=== PATIENT | female | born 1950 | race Caucasian/White ===

== ENCOUNTER → 2017-10-28 | Outpatient (CLI) | payer MEDICARE ==
[2016-05-07 15:21] VITALS: BMI 37.4
[~2017-10-28] MED LIST: ACET-2031 PO; AMOX-559 PO; CALC-762 PO; CEF300 PO; CRAN1000 PO; CYCL10TA29 PO; FLUO-176 PO; FOLI-68 PO; FOLIC ACID PO; GLUC1TAB13 PO; INF100I IV; LOR5/325 PO; MAGN30OR2 PO; METH2.5T43 PO; METHOTREXATE PO; OMEG-36 PO; ONDA4TAB97 PO; OXYC-823 PO; OXYC-869 PO; PER PO; PRE5 PO; PRED-420 PO; PRED20TA6 PO; RIV10 PO; VITA1CAP46 PO; WARF-18 PO
--- NOTE | 2017-10-28 11:27 | RADIOLOGY IMAGING REPORT ---
FACILITY: [facility] PATIENT NAME: Sarah Adams : 1950 MR: [id number] V: [id number] EXAM DATE: ORDERING PHYSICIAN: MARICHUY LUNDBERG TECHNOLOGIST: Location: [facility] Patient: Sarah Adams : 1950 Visit/Account:[id number] Date of Sevice: 10/28/2017 CHEST PA AND LAT HISTORY: Cough. Chest pain. COMPARISON: None FINDINGS: Cardiomediastinal contours: Normal Lungs and pleura: Normal Bones/soft tissues: Normal IMPRESSION: No active disease in the chest. Report Dictated By: Chalino Covington MD at 10/28/2017 11:23 AM Report E-Signed By: Chalino Covington MD at 10/28/2017 11:23 AM WSN:[id number]
== END ==
LOC: RAD 10:46
PROVIDERS: ATTEND Nurse Practitioner Primary Care
DX: R05 Cough (principal)
CPT/HCPCS: 71020

== ENCOUNTER → 2017-11-29 | Outpatient (CLI) | payer MEDICARE ==
[2016-05-07 15:21] VITALS: BMI 37.4
[~2017-11-29] MED LIST changes: +AZIT-1 PO; +MET60GMPT VA; +PNEU0.5D3 IM
== END ==
LOC: LAB 11:35
PROVIDERS: ATTEND Nurse Practitioner Primary Care
DX: R30.0 Dysuria (principal); L29.8 Other pruritus
CPT/HCPCS: 81001; 87210

== ENCOUNTER → 2017-12-27 | Outpatient (CLI) | payer MEDICARE ==
[2016-05-07 15:21] VITALS: BMI 37.4
[~2017-12-27] MED LIST changes: +FLUT16SP19 NS; +LEVO750T44 PO; -WARF-18 PO; +WARF5TAB23 PO
--- NOTE | 2017-12-28 09:13 | RADIOLOGY IMAGING REPORT ---
FACILITY: [facility] PATIENT NAME: DAYNA SOL : [id number] MR: [id number] V: [id number] EXAM DATE: [id number] ORDERING PHYSICIAN: MARICHUY LUNDBERG TECHNOLOGIST: Libby Nicholson PROCEDURE:BILATERAL DIGITAL SCREENING MAMMOGRAM WITH CAD ASSISTED INTERPRETATION & 3D TOMOSYNTHESIS COMPARISON:Prior mammograms 12/14/16. INDICATIONS:SCREENING FINDINGS: There is predominant fatty replacement throughout the breasts. The parenchymal pattern has remained stable allowing for difference in mammographic technique & patient positioning. There is no evidence of malignant appearing mass, malignant appearing calcifications or other secondary sign of malignancy in either breast. DIAGNOSTIC CATEGORY 1--NEGATIVE. RECOMMENDATIONS: ROUTINE MAMMOGRAM AND CLINICAL EVALUATION. IMPRESSION: BIRADS 1: Negative No significant abnormality is seen Dictated by: Claire Zayas M.D. on 12/27/2017 at 14:23 Transcribed by: OWEN on 12/27/2017 at 14:31 Approved by: Claire Zayas M.D. on 12/28/2017 at 9:11 [facility]
== END ==
LOC: MAMO 01:24
PROVIDERS: ATTEND Nurse Practitioner Primary Care
DX: Z12.31 Encounter for screening mammogram for malignant neoplasm of breast (principal)
CPT/HCPCS: 77063; 77067

== ENCOUNTER 2018-01-10 08:07 | Outpatient (RCR) | payer MEDICARE ==
[2016-05-07 15:21] VITALS: BMI 37.4
[2017-11-15 08:24] VITALS: BP 125/67
[2017-11-15] MEDS: LIDOCAINE/SOD BICARB 8.4% SYR ID PRN (08:31)
[2017-11-15] MEDS: NS(*) 0.9% 100 ML BAG 100 ML IVPB PRN (08:33)
[2017-11-15] MEDS: LORATADINE 10 MG TAB PO PRN (08:45)
[2017-11-15] MEDS: ACETAMINOPHEN 325 MG TAB PO PRN (08:46)
[2017-11-15 13:16] VITALS: BP 125/67
[~2018-01-10 08:07] MED LIST changes: +DEXTROSE 5%(*) 100 ML BAG 100 ML IVPB PRN; +inFLIXimab 100 MG VIAL 300 MG in NS(*) 0.9% 250 ML BAG 250 ML IVPB ONE
[2018-01-10 08:12] VITALS: BP 124/65
[2018-01-10] MEDS: ACETAMINOPHEN 325 MG TAB PO PRN (08:21)
[2018-01-10] MEDS: LORATADINE 10 MG TAB PO PRN (08:21)
[2018-01-10] MEDS: NS(*) 0.9% 100 ML BAG 100 ML IVPB PRN (08:22)
[2018-01-10] MEDS: LIDOCAINE/SOD BICARB 8.4% SYR ID PRN (08:22)
[2018-01-10 08:23] LABS: PLATELET COUNT, AUTOMATED 159 K/uL (150-450)
[2018-01-10] MEDS ORDERED: inFLIXimab 100 MG VIAL 300 MG in NS(*) 0.9% 250 ML BAG 250 ML IVPB ONE (09:00)
== END 2018-02-12 ==
LOC: SPU 08:07
PROVIDERS: ATTEND Internal Medicine Rheumatology
DX: M05.79 Rheumatoid arthritis with rheumatoid factor of multiple sites without organ or systems involvement (principal)
CPT/HCPCS: 82565; 84450; 85025; 85651; 96413; 96415; A9270; J1745; J7050

== ENCOUNTER 2018-04-09 16:31 | Emergency (ER) | payer MEDICARE ==
[2016-05-07 15:21] VITALS: Wt 81.6 kg
[~2018-04-09 16:31] MED LIST changes: -DEXTROSE 5%(*) 100 ML BAG 100 ML IVPB PRN; -inFLIXimab 100 MG VIAL 300 MG in NS(*) 0.9% 250 ML BAG 250 ML IVPB ONE
--- NOTE | 2018-04-09 16:52 | ER Report ---
History and Physical Time Seen By MD: 16:40 Hx. of Stated Complaint: PT COMPLAINS OF SOB THAT STARTED THIS MORNING WITH PAIN IN UPPER LEFT SIDED CHEST PAIN. HPI/ROS HPI: 67-year-old female presents to the ED with SOB, pain that originates from under the left breast and into the left shoulder and upper back, as well as, lumbar back pain, migraine, diarrhea and constipation. The shortness of breath started 2 days ago and has become worse today. The shortness of breath is improved when resting and made worse with exception. No treatments tried. She reports, that she frequently watches her grandchildren and often "picks up any sickness they get." Pain under breast that shoots into the left shoulder and upper back started 2 days ago and is worse today. The pain is made better when using a heating pad and worse with quick movement. The patient reports the lumbar back pain started about a week ago. The pain is likely associated with lifting her grandchildren. The patient's migraine started this morning. Reports it was her typical headache and was relieved by 500mg of Tylenol. Reports diarrhea was experienced three days ago. Constipation was experienced today. No treatments tried. ROS: General: denies night sweats and fever Head: reports migraine Eyes: denies changes in vision Ears: denies changes in hearing Nose, sinuses: denies sinus pressure Mouth, throat, neck: no difficulty swallowing CV: pain under left breast that shoots into the left shoulder and upper back Respiratory: Shortness of breath on exertion, no difficulty taking a deep breath GI: diarrhea, constipation Allergies: Uncoded Allergies: SOMETHING FROM THE DENTIST (Allergy, Unknown, 11/09/15) UNSURE THE DRUG. THE PHARMACIST CAUGHT THIS Home Meds Active Scripts Ketorolac Tromethamine (KETOROLAC TROMETHAMINE) 10 Mg Tab, 10 MG PO Q6H for 5 Days, #20 TAB Prov:EDWIN SINCLAIR [facility] 04/09/18 Sulfamethoxazole/Trimet 800-160 Mg Tab (BACTRIM DS TABLET) 1 Each Tablet, 1 TAB PO Q12H for 7 Days, #20 TAB Prov:EDWIN SINCLAIR [facility] 04/09/18 Reported Medications Infliximab (REMICADE) 100 Mg Soln, 100 MG IV 07/19/17 Folic Acid (FOLIC ACID) 1 Mg Tablet, 1 MG PO QDAY, TAB 07/19/17 Methotrexate Sodium (METHOTREXATE) 2.5 Mg Tablet, 15 MG PO Wednesdays05/06/16 Vitamin B Complex (VITAMIN B COMPLEX) 1 Each Capsule, 1 EACH PO QDAY, CAPSULE 05/06/16 Discontinued Scripts Fluticasone Prop 50 Mcg Ns (FLONASE 50 MCG NS) 16 Gm [place].susp, 2 SPRAYS NS QDAY, #1 BOT 0 Refills Prov:MARICHUY LUNDBERG DNP, [employer]OLD MAKER P[employer]ER-BC 12/07/17 Levofloxacin 750 Mg Tab (LEVAQUIN 750 MG TAB) 750 Mg Tablet, 1 TAB PO QDAY for 7 Days, #7 TAB 0 Refills Prov:MARICHUY LUNDBERG DNP, [employer]OLD MAK[employer] P[employer]ER-BC 12/07/17 Past Medical/Surgical History Pneumonia x3 - last experienced 6 months ago Arthritis Hx Smoking: No Smoking Status: Never Smoker Exposure to Second Hand Smoke?: No Hx Substance Use Disorder: No Hx Alcohol Use: Yes Constitutional Vital Sign - Last 24 Hours 04/09/18 04/09/18 04/09/18 04/09/18 16:36 16:40 16:46 17:01 Temp 99.0 Pulse 85 78 76 Resp 16 17 26 B/P (MAP) 129/61 (83) 129/61 Pulse Ox 92 92 89 O2 Delivery Room Air 04/09/18 04/09/18 04/09/18 04/09/18 17:05 17:16 17:30 17:31 Pulse 75 72 Resp 22 19 B/P (MAP) 117/69 (85) 114/70 (85) Pulse Ox 88 89 04/09/18 04/09/18 04/09/18 04/09/18 17:48 18:00 18:01 18:16 Pulse 65 70 Resp 11 14 B/P (MAP) 106/66 (79) 114/60 (78) Pulse Ox 89 88 04/09/18 04/09/18 04/09/18 04/09/18 18:30 18:35 18:40 18:43 Pulse 70 71 Resp 29 16 B/P (MAP) 101/51 (68) Pulse Ox 86 87 O2 Flow Rate 2.0 04/09/18 04/09/18 04/09/18 04/09/18 18:55 19:00 19:05 19:17 Pulse 63 63 Resp 14 B/P (MAP) 120/66 (84) 128/71 (90) Pulse Ox 99 98 O2 Delivery Room Air Intake and Output 04/09/18 04/09/18 04/10/18 14:59 22:59 06:59 Intake Total 1000 ml Balance 1000 ml Physical Exam PE: General: 67-year-old woman in no acute distress Skin: no rash, pale, pink, well perfused Head: normocephalic, atraumatic Eyes: non-injected, pupils round, reactive to light and accommodation Ears: tympanic membranes neville lucero bilaterally Nose: midline, no rhinorrhea Mouth, Throat: pink, moist, no ulcers, good dental hygiene Neck: midline, no lymphadenopathy CV: Clear S1 S2, no murmurs, PMI shifted into the axilla, 2+ radial and pedal pulses, Respiratory: BL equal respiratory excursion, CTA BL, lung sounds in the lower lobes BL GI: normoactive BS x 4 quadrants, lower abdominal pain on palpation, supra pubic pain on palpation Musculoskeletal: free ROM of all extremities, 5/5 strength of lower extremities bilaterally inguinal pain bilaterally on palpation. Neurologic: cranial nerves grossly intact Psych: alert and oriented x 4 Differential diagnoses considered included: pneumonia, angina, SD, PE, UTI, chronic back pain, siatica Medical Decision Making Data Points Result Diagram: 04/09/18 1650 04/09/18 1650 Laboratory Hematology Test 04/09/18 16:50 04/09/18 17:55 Red Blood Count 4.70 M/uL (4.17-5.56) Mean Corpuscular Volume 90.3 fL (80.0-96.0) Mean Corpuscular Hemoglobin 31.2 pg (26.0-33.0) Mean Corpuscular Hemoglobin Concent 34.6 g/dL (32.0-36.0) Red Cell Distribution Width 13.7 % (11.5-14.5) Mean Platelet Volume 9.7 fL (7.2-11.1) Neutrophils (%) (Auto) 53.6 % (39.4-72.5) Lymphocytes (%) (Auto) 29.9 % (17.6-49.6) Monocytes (%) (Auto) 14.8 % (4.1-12.4) Eosinophils (%) (Auto) 0.5 % (0.4-6.7) Basophils (%) (Auto) 1.2 % (0.3-1.4) Nucleated RBC Relative Count (auto) 0.0 /100WBC Neutrophils # (Auto) 3.1 K/uL (2.0-7.4) Lymphocytes # (Auto) 1.7 K/uL (1.3-3.6) Monocytes # (Auto) 0.9 K/uL (0.3-1.0) Eosinophils # (Auto) 0.0 K/uL (0.0-0.5) Basophils # (Auto) 0.1 K/uL (0.0-0.1) Nucleated RBC Absolute Count (auto) 0.00 K/uL Prothrombin Time 14.1 seconds (12.0-14.4) Prothromb Time International Ratio 1.08 Activated Partial Thromboplast Time 33 seconds (23-35) Sodium Level 139 mmol/L (137-145) Potassium Level 3.6 mmol/L (3.5-5.0) Chloride Level 103 mmol/L (98-107) Carbon Dioxide Level 24 mmol/L (22-31) Blood Urea Nitrogen 14 mg/dl (7-18) Creatinine 0.90 mg/dl (0.52-1.04) Glomerular Filtration Rate Calc > 60.0 Random Glucose 143 mg/dl (75-110) Calcium Level 8.8 mg/dl (8.4-10.2) Total Bilirubin 1.0 mg/dl (0.2-1.3) Aspartate Amino Transf (AST/SGOT) 48 U/L (0-35) Alanine Aminotransferase (ALT/SGPT) 34 U/L (0-56) Alkaline Phosphatase 88 U/L (0-126) Troponin I < 0.012 ng/ml C-Reactive Protein 2.4 mg/dl (<1.0) Total Protein 7.9 gm/dl (6.3-8.2) Albumin 3.7 g/dl (3.5-5.0) Urine Color Yellow Urine Clarity Slightly-cloudy Urine pH 5.0 pH (4.8-9.5) Urine Specific [place] 1.039 Urine Protein Negative mg/dL (NEGATIVE) Urine Glucose (UA) Negative mg/dL (NEGATIVE) Urine Ketones Negative mg/dL (NEGATIVE) Urine Blood Negative (NEGATIVE) Urine Nitrite Negative (NEGATIVE) Urine Bilirubin Negative (NEGATIVE) Urine Urobilinogen 4.0 mg/dL (0.2-1.9) Urine Leukocyte Esterase Large (NEGATIVE) Urine RBC 6 /HPF (0-2/HPF) Urine WBC 83 /HPF (0-5/HPF) Urine Squamous Epithelial Cells Many /LPF (</=FEW) Urine Amorphous Crystals Few /HPF Urine Bacteria Few /HPF (NONE-FEW) Urine Mucus Few /HPF (NONE-FEW) Chemistry Test 04/09/18 16:50 04/09/18 17:55 White Blood Count 5.8 k/uL (4.5-11.0) Red Blood Count 4.70 M/uL (4.17-5.56) Hemoglobin 14.7 g/dL (12.0-16.0) Hematocrit 42.5 % (34.0-47.0) Mean Corpuscular Volume 90.3 fL (80.0-96.0) Mean Corpuscular Hemoglobin 31.2 pg (26.0-33.0) Mean Corpuscular Hemoglobin Concent 34.6 g/dL (32.0-36.0) Red Cell Distribution Width 13.7 % (11.5-14.5) Platelet Count 181 K/uL (150-450) Mean Platelet Volume 9.7 fL (7.2-11.1) Neutrophils (%) (Auto) 53.6 % (39.4-72.5) Lymphocytes (%) (Auto) 29.9 % (17.6-49.6) Monocytes (%) (Auto) 14.8 % (4.1-12.4) Eosinophils (%) (Auto) 0.5 % (0.4-6.7) Basophils (%) (Auto) 1.2 % (0.3-1.4) Nucleated RBC Relative Count (auto) 0.0 /100WBC Neutrophils # (Auto) 3.1 K/uL (2.0-7.4) Lymphocytes # (Auto) 1.7 K/uL (1.3-3.6) Monocytes # (Auto) 0.9 K/uL (0.3-1.0) Eosinophils # (Auto) 0.0 K/uL (0.0-0.5) Basophils # (Auto) 0.1 K/uL (0.0-0.1) Nucleated RBC Absolute Count (auto) 0.00 K/uL Prothrombin Time 14.1 seconds (12.0-14.4) Prothromb Time International Ratio 1.08 Activated Partial Thromboplast Time 33 seconds (23-35) Glomerular Filtration Rate Calc > 60.0 Calcium Level 8.8 mg/dl (8.4-10.2) Total Bilirubin 1.0 mg/dl (0.2-1.3) Aspartate Amino Transf (AST/SGOT) 48 U/L (0-35) Alanine Aminotransferase (ALT/SGPT) 34 U/L (0-56) Alkaline Phosphatase 88 U/L (0-126) Troponin I < 0.012 ng/ml C-Reactive Protein 2.4 mg/dl (<1.0) Total Protein 7.9 gm/dl (6.3-8.2) Albumin 3.7 g/dl (3.5-5.0) Urine Color Yellow Urine Clarity Slightly-cloudy Urine pH 5.0 pH (4.8-9.5) Urine Specific [place] 1.039 Urine Protein Negative mg/dL (NEGATIVE) Urine Glucose (UA) Negative mg/dL (NEGATIVE) Urine Ketones Negative mg/dL (NEGATIVE) Urine Blood Negative (NEGATIVE) Urine Nitrite Negative (NEGATIVE) Urine Bilirubin Negative (NEGATIVE) Urine Urobilinogen 4.0 mg/dL (0.2-1.9) Urine Leukocyte Esterase Large (NEGATIVE) Urine RBC 6 /HPF (0-2/HPF) Urine WBC 83 /HPF (0-5/HPF) Urine Squamous Epithelial Cells Many /LPF (</=FEW) Urine Amorphous Crystals Few /HPF Urine Bacteria Few /HPF (NONE-FEW) Urine Mucus Few /HPF (NONE-FEW) Coagulation Test 04/09/18 16:50 Prothrombin Time 14.1 seconds Prothromb Time International Ratio 1.08 Activated Partial Thromboplast Time 33 seconds Urinalysis Test 04/09/18 17:55 Urine Color Yellow Urine Clarity Slightly-cloudy Urine pH 5.0 pH (4.8-9.5) Urine Specific [place] 1.039 Urine Protein Negative mg/dL (NEGATIVE) Urine Glucose (UA) Negative mg/dL (NEGATIVE) Urine Ketones Negative mg/dL (NEGATIVE) Urine Blood Negative (NEGATIVE) Urine Nitrite Negative (NEGATIVE) Urine Bilirubin Negative (NEGATIVE) Urine Urobilinogen 4.0 mg/dL (0.2-1.9) Urine Leukocyte Esterase Large (NEGATIVE) Urine RBC 6 /HPF (0-2/HPF) Urine WBC 83 /HPF (0-5/HPF) Urine Squamous Epithelial Cells Many /LPF (</=FEW) Urine Amorphous Crystals Few /HPF Urine Bacteria Few /HPF (NONE-FEW) Urine Mucus Few /HPF (NONE-FEW) EKG/Imaging EKG Interpretation 12 lead EKG: Rhythm: Normal sinus rhythm with left sided cardiac enlargement. [place]: normal QRS: normal ST segments: normal Imaging 2 VIEWS CHEST INDICATION: Shortness of breath. COMPARISON: 10/28/2017. FINDINGS: Cardiomediastinal silhouette and pulmonary vessels within normal limits. There is no focal infiltrate or lobar consolidation. There is no pneumothorax or pleural effusion. Mild prominence of the interstitium when compared to the previous examination. No discrete nodule. Upper abdomen is unremarkable. No acute bony abnormality. IMPRESSION: 1. There is mild increased prominence of the interstitium without focal area of consolidation. This prominence could be secondary to the mild accentuation from the mild decreased lung volumes, mild edema or mild worsening chronic interstitial changes. Report Dictated By: Lan Portillo at 04/09/2018 6:04 PM Report E-Signed By: Lan Portillo at 04/09/2018 6:05 PM ED Course/Re-evaluation ED Course Patient was admitted and examined, history and physical were obtained. Differential diagnoses were considered. Examination patient had generalized tenderness to the chest, suprapubic region. A CBC, CMP, troponin, EKG, chest x- ray, urinalysis were obtained. The lab results were unremarkable, troponin was negative, chest x-ray showed no acute findings, EKG showed a normal sinus rhythm with ventricular rate 71 bpm. The urine did show large leukocyte esterase with 86 white blood cells per high-power field. A culture was obtained. With the remaining labs being negative and the urinalysis I believe this is a urinary tract infection which is causing the generalized achiness. Patient does have generalized muscle aches which I believe is related to the urinary tract infection. We will go ahead and treat her with Bactrim DS one tablet twice a day for 7 days as well as Toradol to help with pain. Patient is increase her fluid intake, get plenty of rest, follow up with primary care provider in the next week. She is to return to emergency room if condition worsens. We will contact her if the patient needs to have her antibiotics changed. Patient and her verbalized understanding and agreement with plan. Decision to Disposition Date: Apr 09, 2018 Decision to Disposition Time: 19:16 Depart Departure Latest Vital Signs Vital Signs Date Time Temp Pulse Resp B/P (MAP) Pulse Ox O2 Delivery O2 Flow Rate FiO2 04/09/18 19:17 128/71 (90) 04/09/18 19:05 63 14 98 Room Air 04/09/18 18:43 2.0 04/09/18 16:40 99.0 Impression: Primary Impression: UTI (urinary tract infection) Additional Impression: Body aches Condition: Improved Disposition: HOME OR SELF-CARE Referrals: MARICHUY LUNDBERG DNP, [employer] P[employer]ER-BC (PCP) New Scripts Ketorolac Tromethamine (KETOROLAC TROMETHAMINE) 10 Mg Tab 10 MG PO Q6H for 5 Days, #20 TAB Prov: EDWIN SINCLAIR 04/09/18 Sulfamethoxazole/Trimet 800-160 Mg Tab (BACTRIM DS TABLET) 1 Each Tablet 1 TAB PO Q12H for 7 Days, #20 TAB Prov: EDWIN SINCLAIR 04/09/18 Patient Instructions: Urinary Tract Infection in Women (ED) Additional Instructions: Take antibiotic - Bactrim for 7 days as directed by pharmacist. Take Toradol as needed for pain every 6 hours. Follow up with your primary care provider. Consider seeing a cd reactor operator head for specialized advise. Increase your water intake and get plenty of rest. Return to the Emergency Department if your condition worsens. Problem Qualifiers Primary Impression: UTI (urinary tract infection) Urinary tract infection type: acute cystitis Hematuria presence: without hematuria Qualified Codes: N30.00 - Acute cystitis without hematuria EDWIN SINCLAIR Apr 09, 2018 16:52
[2018-04-09] MEDS ORDERED: NS(*) 0.9% 1000 ML BAG 1,000 ML IV ONE (17:20)
[2018-04-09 17:32] LABS: PLATELET COUNT, AUTOMATED 181 K/uL (150-450)
[2018-04-09 17:52] LABS: INR 1.08
--- NOTE | 2018-04-09 18:09 | RADIOLOGY IMAGING REPORT ---
FACILITY: [facility] PATIENT NAME: Sarah Adams : 1950 MR: [id number] V: [id number] EXAM DATE: ORDERING PHYSICIAN: EDWIN SINCLAIR TECHNOLOGIST: Location: [facility] Patient: Sarah Adams : 1950 Visit/Account:[id number] Date of Sevice: 04/09/2018 2 VIEWS CHEST INDICATION: Shortness of breath. COMPARISON: 10/28/2017. FINDINGS: Cardiomediastinal silhouette and pulmonary vessels within normal limits. There is no focal infiltrate or lobar consolidation. There is no pneumothorax or pleural effusion. Mild prominence of the interstitium when compared to the previous examination. No discrete nodule. Upper abdomen is unremarkable. No acute bony abnormality. IMPRESSION: 1. There is mild increased prominence of the interstitium without focal area of consolidation. This p rominence could be secondary to the mild accentuation from the mild decreased lung volumes, mild harley a or mild worsening chronic interstitial changes. Report Dictated By: Lan Portillo at 04/09/2018 6:04 PM Report E-Signed By: Lan Portillo at 04/09/2018 6:05 PM WSN:[id number]
--- NOTE | 2018-04-09 18:12 | EKG ---
FACILITY: [facility] PATIENT NAME: DAYNA SOL : [id number] MR: [id number] V: [id number] EXAM DATE: ORDERING PHYSICIAN: EDWIN SINCLAIR TECHNOLOGIST: CLEVE Pacheco Reason : Blood Pressure : / mmHG Vent. Rate : 071 BPM Atrial Rate : 071 BPM P-R Int : 136 ms QRS Dur : 070 ms QT Int : 408 ms P-R-T Axes : 022 -07 036 degrees QTc Int : 443 ms Normal sinus rhythm Possible Left atrial enlargement Borderline ECG Confirmed by TREE SIM ([id number]) on 04/10/2018 6:33:54 AM Referred By: DOTTIE Confirmed By:TREE SIM
[2018-04-09] MEDS ORDERED: SULF-198 PO (18:58)
[2018-04-09] MEDS ORDERED: KET10 PO (18:58)
[2018-04-09] MEDS ORDERED: TRIMETHOPRIM/SULFA 160-800 TH 2 TAB/BOTTLE PO ONE (19:00)
[2018-04-09 19:17] VITALS: BP 128/71
[2018-04-13] MEDS ORDERED: IPRA3AMP21 IH (10:07)
[2018-04-13] MEDS ORDERED: ENOX100D5 SQ (16:16)
== END 2018-04-09 19:21 | disposition home or self-care (01) ==
LOC: ER 16:50
DX: N30.00 Acute cystitis without hematuria (principal)
CPT/HCPCS: 71046; 81001; 84484; 85025; 85610; 85730; 86140; 87088; 93005; 96360; 99284; J7030; 82040; 82247; 82310; 82374; 82435; 82565; 82947; 84075; 84132; 84155; 84295; 84450; 84460; 84520

== ENCOUNTER → 2018-04-13 | Outpatient (CLI) | payer MEDICARE ==
[2016-05-07 15:21] VITALS: BMI 37.4
[~2018-04-13] MED LIST changes: +ENOX100D5 SQ; +IPRA3AMP21 IH; +KET10 PO; +SULF-198 PO
[2018-04-13 10:44] LABS: PLATELET COUNT, AUTOMATED 209 K/uL (150-450)
--- NOTE | 2018-04-13 11:36 | RADIOLOGY IMAGING REPORT ---
FACILITY: [facility] PATIENT NAME: Sarah Adams : 1950 MR: [id number] V: [id number] EXAM DATE: ORDERING PHYSICIAN: EDWIN SINCLAIR TECHNOLOGIST: Location: [facility] Patient: Sarah Adams : 1950 Visit/Account:[id number] Date of Sevice: 04/13/2018 Exam type: CHEST PA AND LAT History: Shortness of breath Comparison: April 09, 2018. Findings: There has been further increase in the interstitial markings throughout the lungs and mild patchy jan eolar consolidation. There is no evidence of pleural effusions. The cardiac silhouette appears norm al in size. IMPRESSION: 1. Further increase in the interstitial markings of the lungs and mild patchy alveolar consolidation bilaterally. There is no evidence of pleural effusions or cardiomegaly. Findings are more likely s econdary to bilateral pneumonia although an atypical presentation of pulmonary edema would also be in cluded in the differential diagnosis Report Dictated By: Claire Zayas MD at 04/13/2018 11:29 AM Report E-Signed By: Claire Zayas MD at 04/13/2018 11:31 AM WSN:[email or web address]
== END ==
LOC: LAB 10:01
PROVIDERS: ATTEND Nurse Practitioner Family
DX: R91.8 Other nonspecific abnormal finding of lung field (principal)
CPT/HCPCS: 36415; 71046; 85025; 85379; 86140

== ENCOUNTER → 2018-04-14 | Outpatient (CLI) | payer MEDICARE ==
[2016-05-07 15:21] VITALS: BMI 37.4
== END ==
LOC: RESP 00:44
PROVIDERS: ATTEND Nurse Practitioner Family
DX: Z02.9 Encounter for administrative examinations, unspecified (principal)

== ENCOUNTER → 2018-04-14 | Outpatient (CLI) | payer MEDICARE ==
[2016-05-07 15:21] VITALS: BMI 37.4
--- NOTE | 2018-04-14 14:35 | RADIOLOGY IMAGING REPORT ---
FACILITY: [facility] [place] PATIENT NAME: Sarah Adams : 1950 MR: [id number] V: [id number] EXAM DATE: ORDERING PHYSICIAN: MARICHUY LUNDBERG TECHNOLOGIST: Location: [facility] [place] Patient: Sarah Adams : 1950 Visit/Account:[id number] Date of Sevice: 04/14/2018 2 VIEWS CHEST INDICATION: Shortness of breath. Elevated d-dimer. COMPARISON: April 13, 2018. FINDINGS: Heart size within normal limits. Diffuse interstitial opacities with bronchial wall thickening, stable to slightly progressed since pr ior radiograph. No focal consolidation identified. There is no pneumothorax or pleural effusion. IMPRESSION: Stable to slight progression of interstitial opacities and bronchial wall thickening since prior exam . Report Dictated By: Alex Leal MD at 04/14/2018 2:30 PM Report E-Signed By: Alex Leal MD at 04/14/2018 2:31 PM WSN:[email or web address]
--- NOTE | 2018-04-14 16:43 | RADIOLOGY IMAGING REPORT ---
FACILITY: [facility] PATIENT NAME: Sarah Adams : 1950 MR: [id number] V: [id number] EXAM DATE: ORDERING PHYSICIAN: MARICHUY LUNDBERG TECHNOLOGIST: Location: [facility] Patient: Sarah Adams : 1950 Visit/Account:[id number] Date of Sevice: 04/14/2018 Examination: Nuclear medicine ventilation and perfusion imaging COMPARISON: Chest x-ray same day and earlier. HISTORY: Shortness of breath, chest pain, elevated d-dimer TECHNIQUE: 35.1 mCi aerosolized technetium 99m DTPA was administered by inhalation. Multiplanar static images w ere obtained. 2.4 mCi Tc MAA was injected intravenously. Gamma camera images were obtained of the chest in various orientations. FINDINGS: Lung ventilation radiotracer distribution: Mildly heterogeneous tracer distribution with no segmental ventilation defect. Lung perfusion radiotracer distribution: Mildly heterogeneous tracer distribution similar to the adama tilation portion of the study. No segmental perfusion defect. Correlation to chest x-ray: Diffuse indistinct parenchymal opacities. No lobar consolidation or effus ion. IMPRESSION: Negative VQ scan for pulmonary embolism. Results were discussed with MARICHUY LUNDBERG at 04/14/2018 4:38 PM. Report Dictated By: David Farooq MD at 04/14/2018 4:17 PM Report E-Signed By: David Farooq MD at 04/14/2018 4:38 PM WSN:[id number]
== END ==
LOC: NUC 13:00
PROVIDERS: ATTEND Nurse Practitioner Primary Care
DX: R91.8 Other nonspecific abnormal finding of lung field (principal)
CPT/HCPCS: 71046; 78582; A9540; A9567

== ENCOUNTER → 2018-04-18 | Outpatient (CLI) | payer MEDICARE ==
[2016-05-07 15:21] VITALS: BMI 37.4
== END ==
LOC: LAB 09:47
PROVIDERS: ATTEND Nurse Practitioner Primary Care
DX: Z02.9 Encounter for administrative examinations, unspecified (principal)

== ENCOUNTER → 2018-04-18 | Outpatient (CLI) | payer MEDICARE ==
[2016-05-07 15:21] VITALS: BMI 37.4
--- NOTE | 2018-04-18 10:31 | RADIOLOGY IMAGING REPORT ---
FACILITY: [facility] [place] PATIENT NAME: Sarah Adams : 1950 MR: [id number] V: [id number] EXAM DATE: ORDERING PHYSICIAN: MARICHUY LUNDBERG TECHNOLOGIST: Location: [facility] Patient: Sarah Adams : 1950 Visit/Account:[id number] Date of Sevice: 04/18/2018 Exam type: CHEST PA AND LAT History: Shortness of breath, pneumonia Comparison: April 14, 2018. Findings: Reticular nodular changes throughout the lungs have increased when compared to the prior study. Ther e is no evidence of pleural effusions or cardiomegaly. There are mild spondylotic changes in the tho racic spine. IMPRESSION: 1. Reticular nodular changes at the lungs have increased when compared the prior study concerning fo r multifocal pneumonia as the clinical history suggests. Report Dictated By: Claire Zayas MD at 04/18/2018 10:25 AM Report E-Signed By: Claire Zayas MD at 04/18/2018 10:27 AM WSN:[email or web address]
== END ==
LOC: LAB 09:48
PROVIDERS: ATTEND Nurse Practitioner Primary Care
DX: N39.0 Urinary tract infection, site not specified (principal); J18.9 Pneumonia, unspecified organism
CPT/HCPCS: 71046; 81001

== ENCOUNTER 2018-05-02 08:22 | Outpatient (RCR) | payer MEDICARE ==
[2016-05-07 15:21] VITALS: BMI 37.4
[2018-03-07] MEDS: LIDOCAINE/SOD BICARB 8.4% SYR ID PRN (08:36)
[2018-03-07] MEDS: NS(*) 0.9% 100 ML BAG 100 ML IVPB PRN (08:36)
[2018-03-07] MEDS: ACETAMINOPHEN 325 MG TAB PO PRN (08:58)
[2018-03-07] MEDS: LORATADINE 10 MG TAB PO PRN (08:58)
[2018-03-07 12:30] VITALS: BP 126/72
[~2018-05-02 08:22] MED LIST changes: +DEXTROSE 5%(*) 100 ML BAG 100 ML IVPB PRN; +IPRA3AMP10 IH; -IPRA3AMP21 IH; +inFLIXimab 100 MG VIAL 300 MG in NS(*) 0.9% 250 ML BAG 250 ML IVPB ONE
[2018-05-02 08:26] VITALS: BP 139/67
[2018-05-02] MEDS: LIDOCAINE/SOD BICARB 8.4% SYR ID PRN (08:30)
[2018-05-02] MEDS: NS(*) 0.9% 100 ML BAG 100 ML IVPB PRN (08:31)
[2018-05-02] MEDS: ACETAMINOPHEN 325 MG TAB PO PRN (08:31)
[2018-05-02] MEDS: LORATADINE 10 MG TAB PO PRN (08:31)
[2018-05-02 08:57] LABS: PLATELET COUNT, AUTOMATED 211 K/uL (150-450)
[2018-05-02] MEDS ORDERED: inFLIXimab 100 MG VIAL 300 MG in NS(*) 0.9% 250 ML BAG 250 ML IVPB ONE (10:00)
[2018-05-22] MEDS ORDERED: CHOL500045 PO (09:35)
[2018-05-22] MEDS ORDERED: VARI50KI IM (09:36)
[2018-05-22] MEDS ORDERED: ATOR20TA65 PO (09:46)
== END 2018-06-04 ==
LOC: SPU 08:22
PROVIDERS: ATTEND Internal Medicine Rheumatology
DX: M05.79 Rheumatoid arthritis with rheumatoid factor of multiple sites without organ or systems involvement (principal)
CPT/HCPCS: 82565; 84450; 85025; 85651; 96413; 96415; A9270; J1745; J7050

== ENCOUNTER → 2018-05-16 | Outpatient (CLI) | payer MEDICARE ==
[2016-05-07 15:21] VITALS: BMI 37.4
[~2018-05-16] MED LIST changes: -DEXTROSE 5%(*) 100 ML BAG 100 ML IVPB PRN; -inFLIXimab 100 MG VIAL 300 MG in NS(*) 0.9% 250 ML BAG 250 ML IVPB ONE
== END ==
LOC: LAB 11:29
PROVIDERS: ATTEND Emergency Medicine
DX: E83.51 Hypocalcemia (principal); R73.03 Prediabetes; R94.5 Abnormal results of liver function studies
CPT/HCPCS: 36415; 82306; 83036; 83540; 83550; 86706; 86707; 87340; 87350; G0472; 82465; 83718; 84478; 86803

== ENCOUNTER → 2018-05-22 | Outpatient (CLI) | payer MEDICARE ==
[2016-05-07 15:21] VITALS: BMI 37.4
[~2018-05-22] MED LIST changes: +ATOR20TA65 PO; +CHOL500045 PO; +VARI50KI IM
== END ==
LOC: LAB 10:01
PROVIDERS: ATTEND Emergency Medicine
DX: E83.19 Other disorders of iron metabolism (principal)
CPT/HCPCS: 36415; 81256

== ENCOUNTER → 2018-08-21 | Outpatient (CLI) | payer MEDICARE ==
[2016-05-07 15:21] VITALS: BMI 37.4
[~2018-08-21] MED LIST changes: +ASPI81TA94 PO; +CHOL10005 PO; +PRAV40TA78 PO
== END ==
LOC: LAB 09:06
PROVIDERS: ATTEND Emergency Medicine
DX: E55.9 Vitamin D deficiency, unspecified (principal)
CPT/HCPCS: 36415; 82306

== ENCOUNTER 2018-09-11 10:00 | Outpatient (RCR) | payer MEDICARE ==
[2016-05-07 15:21] VITALS: Wt 84.5 kg
[2018-06-16 13:37] VITALS: BP 131/80
[2018-06-16 15:12] LABS: PLATELET COUNT, AUTOMATED 249 K/uL (150-450)
--- NOTE | 2018-06-16 16:53 | ONCOLOGY CONSULTATION ---
EVENT DATE: June 16, 2018 REFERRING PHYSICIAN Masoud Haq MD REASON FOR CONSULTATION Evaluation and management of hereditary hemochromatosis. HEMATOLOGY HISTORY Patient is a 68-year-old female who was diagnosed with iron overload for a long time. As per patient, she was followed by Dr. Rae in the past and she was advised to do a phlebotomy every six weeks by donating her blood, and the patient ended doing that since 2014. Patient has been followed by Dr. 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 PAST MEDICAL HISTORY 1. Hereditary hemochromatosis. 2. History of pulmonary embolism after right knee replacement surgery in 2013. 3. Rheumatoid arthritis. PAST SURGICAL HISTORY 1. Hysterectomy and oophorectomy. 2. Hernia repair. 3. Right knee replacement, 2013. 4. Tonsillectomy. FAMILY HISTORY Brother with lung cancer. Sister with hepatitis C virus infection. SOCIAL HISTORY Patient is with two children. She is a homemaker. Denies any abuse of tobacco, alcohol or drugs. CURRENT MEDICATIONS 1. Vitamin D 5000 units daily. 2. Remicade 100 mg intravenously every eight weeks. 3. Folic acid 1 mg daily. 4. Methotrexate 2.5 mg every week. ALLERGIES She had an allergic reaction to something given by her dentist. She does not know exactly the name. REVIEW OF SYSTEMS CONSTITUTIONAL: No appetite or weight change. No fever, chills or sweating. No recent infection. HEENT: Ears: No tinnitus or hearing problem. Nose: No nasal discharge or epistaxis. Throat: No sore throat or mouth ulcers. Eyes: No diplopia or visual changes. RESPIRATORY: No shortness of breath. No cough, expectoration or hemoptysis. CARDIOVASCULAR: No chest pain, orthopnea, or paroxysmal nocturnal dyspnea (PND) . No edema. No palpitations. GASTROINTESTINAL: No nausea or vomiting. No diarrhea or constipation. No change in bowel movements. No heartburn or swallowing difficulties. No abdominal pain. No jaundice. No hematemesis, melena or rectal bleeding. GENITOURINARY: No hematuria or dysuria. MUSCULOSKELETAL: She has pain in the arms and right leg. NEUROLOGICAL: No tingling or numbness in the hands or feet. She has occasional headaches. No convulsions. HEMATOLOGIC/LYMPHATIC: No bleeding or easy bruising. No weakness or fatigue. No enlarged lymph nodes. SKIN: No skin rash or lumps. PSYCHIATRIC: No anxiety or depression. PHYSICAL EXAMINATION GENERAL: Looks stable. Well-developed, well-nourished, and in no acute distress. VITAL SIGNS: Blood pressure 131/80, pulse 70 per minute, respirations 16 per minute, temperature 97.4, pulse ox 91% on room air. HEENT: Head: Atraumatic. No sinus tenderness to palpation. Eyes: No icterus or conjunctivitis. Mouth and Throat: No oral thrush or mucositis. NECK: Supple. No cervical or supraclavicular lymphadenopathy. LUNGS: Clear to auscultation and percussion bilaterally. HEART: Regular rate and rhythm. No gallops, murmurs, clicks or rubs. ABDOMEN: Soft and lax. No tenderness. No hepatosplenomegaly. No masses. EXTREMITIES: No cyanosis, clubbing or edema. LYMPHATICS: No peripheral lymphadenopathy. NEUROLOGICAL: Conscious, alert and oriented times three. No focal motor or sensory deficits. PSYCHIATRIC: Mood and affect appear normal. SKIN: No skin rash, bruise or purpuric eruption. ASSESSMENT 1. 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 Patient was donating her blood every six weeks in the past, but she stopped that in 2014. I am planning to check her iron studies with ferritin and CBC, and I am planning to proceed with phlebotomy as long as her ferritin is above 100 and/or iron saturation more than 60%. I will check her CBC, iron studies every two weeks, and proceed with a phlebotomy as long as they are above the target. I will see her again in two months with CBC , chem panel, iron studies with ferritin. I explained that to the patient and she is agreeable with the plan of management. 2. Rheumatoid arthritis, on methotrexate and Remicade. PLAN 1. Check CBC and chem panel. 2. Check iron studies with ferritin. 3. Proceed with phlebotomy as long as the ferritin is above 100 and/or iron saturation above 60%. 4. CBC and iron studies with ferritin to be checked every two weeks. 5. Patient to return in two months with CBC, chem panel, iron studies with ferritin. 6. Patient is to contact us for any new concerns or complaints. KALEIDA HEALTHElsie
[2018-06-20 09:02] VITALS: BP 117/75
[2018-06-20 09:16] VITALS: BP 108/79
[2018-06-27 08:22] VITALS: BP 110/78
[2018-06-27] MEDS: LIDOCAINE/SOD BICARB 8.4% SYR ID PRN (08:33)
[2018-06-27] MEDS: NS(*) 0.9% 100 ML BAG 100 ML IVPB PRN (08:33)
[2018-07-04 09:06] VITALS: BP 132/76
[2018-07-04 09:23] LABS: PLATELET COUNT, AUTOMATED 251 K/uL (150-450)
[2018-07-04 11:33] VITALS: BP 112/66
[2018-07-18 08:30] VITALS: BP 124/81
[2018-07-18 08:59] LABS: PLATELET COUNT, AUTOMATED 177 K/uL (150-450)
[2018-07-31 08:38] VITALS: BP 127/77
[2018-08-11 08:17] VITALS: BP 122/83
[2018-08-11 08:34] LABS: PLATELET COUNT, AUTOMATED 202 K/uL (150-450)
[2018-08-11 09:38] VITALS: BP 119/73
[2018-08-17 08:44] VITALS: BP 104/67
--- NOTE | 2018-08-17 22:30 | ONCOLOGY FOLLOW UP NOTE ---
EVENT DATE: August 17, 2018 DIAGNOSES 1. Hereditary hemochromatosis with homozygous state of H63D mutation of the HFE gene. 2. Rheumatoid arthritis. CHIEF COMPLAINT Patient is here today for followup of her hereditary hemochromatosis. HEMATOLOGY HISTORY Patient is a 68-year-old female who was diagnosed with iron overload for a long time. As per patient, she was followed by Dr. Rae in the past. She was advised to do a phlebotomy every six weeks by donating her blood, and the patient ended doing that in 2014. Patient has been followed by Dr. 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 HISTORY OF PRESENT ILLNESS Patient is here today for followup of her hereditary hemochromatosis. She is doing fine currently except she has some easy bruising, but other than that, she is doing very well. Patient felt much better after her phlebotomy. She felt more energetic. PAST MEDICAL HISTORY 1. Hereditary hemochromatosis. 2. History of pulmonary embolism after right knee replacement surgery in 2013. 3. Rheumatoid arthritis. PAST SURGICAL HISTORY 1. Hysterectomy and oophorectomy. 2. Hernia repair. 3. Right knee replacement 2013. 4. Tonsillectomy. FAMILY HISTORY Brother with lung cancer. Sister with hepatitis C virus infection. SOCIAL HISTORY Patient is with two children. She is a homemaker. Denies any abuse of tobacco, alcohol, or drugs. CURRENT MEDICATIONS 1. Vitamin D 5000 units daily. 2. Remicade 100 mg intravenously every eight weeks. 3. Folic acid 1 mg daily. 4. Methotrexate 2.5 mg every week. ALLERGIES She had an allergic reaction to something given by her dentist. She does not know exactly the name. REVIEW OF SYSTEMS CONSTITUTIONAL: No appetite or weight change. No fever, chills, or sweating. No recent infection. HEENT: Ears: No tinnitus or hearing problem. Nose: No nasal discharge or epistaxis. Throat: No sore throat or mouth ulcers. Eyes: No diplopia or visual changes. RESPIRATORY: No shortness of breath. No cough, expectoration, or hemoptysis. CARDIOVASCULAR: No chest pain, orthopnea, or paroxysmal nocturnal dyspnea (PND). No edema. No palpitations. GASTROINTESTINAL: No nausea or vomiting. No diarrhea or constipation. No change in bowel movements. No heartburn or swallowing difficulties. No abdominal pain. No jaundice. No hematemesis, melena, or rectal bleeding. GENITOURINARY: No hematuria or dysuria. MUSCULOSKELETAL: She has pain in the arms and right leg. NEUROLOGICAL: No tingling or numbness in the hands or feet. She has occasional headaches. No convulsions. HEMATOLOGIC/LYMPHATIC: She bruises easily. No weakness or fatigue. No enlarged lymph nodes. SKIN: No skin rash or lumps. PSYCHIATRIC: No anxiety or depression. PHYSICAL EXAMINATION GENERAL: Looks stable. Well developed, well nourished, and in no acute distress. VITAL SIGNS: Blood pressure 104/67, pulse 58 per minute, respirations 16 per minute, temperature 97, pulse ox 92% on room air. HEENT: Head: Atraumatic. No sinus tenderness to palpation. Eyes: No icterus or conjunctivitis. Mouth and Throat: No oral thrush or mucositis. NECK: Supple. No cervical or supraclavicular lymphadenopathy. LUNGS: Clear to auscultation and percussion bilaterally. HEART: Regular rate and rhythm. No gallops, murmurs, clicks, or rubs. ABDOMEN: Soft and lax. No tenderness. No hepatosplenomegaly. No masses. EXTREMITIES: No cyanosis, clubbing, or edema. LYMPHATICS: No peripheral lymphadenopathy. NEUROLOGICAL: Conscious, alert, and oriented times three. No focal motor or sensory deficits. PSYCHIATRIC: Mood and affect appear normal. SKIN: No skin rash, bruise, or purpuric eruption. DIAGNOSTIC DATA CBC showed white count 3.8, hemoglobin 13.7, hematocrit 40.8, platelets 202,000, ANC 1.2. Serum iron is 216 which is high. Iron saturation is 64.3%, and the ferritin is 82. ASSESSMENT 1. Hereditary hemochromatosis with homozygous state of H63D mutation of the HFE gene tested April 2018. Patient was donating her blood every six weeks in the past, but she stopped that in 2014. She started checking her blood count every two weeks since I saw her in consultation two months ago with phlebotomy to be done if the iron saturation more than or equal to 60% and/or serum ferritin at or more than 100. She had her last phlebotomy nearly a week ago when she had her blood count which showed iron saturation of 64.3% and a ferritin of 82. I am planning to continue checking her iron studies with CBC every two weeks, and I will proceed with phlebotomy whenever the ferritin is at or above 100 and/or iron saturation at or above 60%. I will see her again in one month with CBC, chemistry panel, iron studies with ferritin. 2. Rheumatoid arthritis, on methotrexate and Remicade. PLAN 1. CBC and iron studies to be checked every two weeks. 2. Patient to return in one month with CBC, chem panel, iron studies with ferritin. 3. Proceed with phlebotomy as long as the ferritin is above 100 and/or iron saturation above 60%. 4. Patient to contact us for any new concern or complaints. ANND
[2018-08-22 08:06] VITALS: BP 118/70
[2018-08-22] MEDS: NS(*) 0.9% 100 ML BAG 100 ML IVPB PRN (08:16)
[2018-08-22] MEDS: LIDOCAINE/SOD BICARB 8.4% SYR ID PRN (08:16)
[2018-08-22 08:25] LABS: PLATELET COUNT, AUTOMATED 216 K/uL (150-450)
[2018-08-29 08:11] VITALS: BP 161/103
[2018-08-29 08:33] LABS: PLATELET COUNT, AUTOMATED 196 K/uL (150-450)
[2018-09-08 08:07] VITALS: BP 129/72
--- NOTE | 2018-09-08 23:25 | ONCOLOGY FOLLOW UP NOTE ---
EVENT DATE: September 08, 2018 CHIEF COMPLAINT Followup for hereditary hemochromatosis. HISTORY OF PRESENT ILLNESS Patient is a 68-year-old female who is followed for hereditary hemochromatosis. She has been receiving phlebotomy intermittently and has tolerated this well. Last phlebotomy was 08/11/18. Her energy is much improved. She also had rheumatoid arthritis and receives Remicade on an every eight-week basis. This has significantly improved her overall discomfort/joint pain and improved her energy. She denies any new complaints. She does have some very occasional constipation, but manages this through dietary changes. She received her flu vaccine in July 2018. HEMATOLOGY HISTORY Patient was diagnosed with iron overload. She was advised to do phlebotomy every six weeks by donating her blood, but ended doing that in 2014. Once seen by Dr. 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 PAST MEDICAL HISTORY 1. Hereditary hemochromatosis. 2. History of pulmonary embolism after right knee replacement surgery in 2013. 3. Rheumatoid arthritis 2013. PAST SURGICAL HISTORY 1. Hysterectomy and oophorectomy. 2. Hernia repair. 3. Right knee replacement 2013. 4. Tonsillectomy. FAMILY HISTORY Brother of lung cancer. Sister of hepatitis C virus infection. SOCIAL HISTORY Patient is with two children. She is a homemaker. Denies any abuse of tobacco, alcohol, or drugs. CURRENT MEDICATIONS 1. Vitamin D 5000 units daily. 2. Remicade 100 mg intravenously every eight weeks. 3. Folic acid 1 mg daily. 4. Methotrexate 2.5 mg every week. ALLERGIES She had an allergic reaction to something given by her dentist, exact name not known. REVIEW OF SYSTEMS A 12-point review of systems is performed and is negative except as stated above. PHYSICAL EXAMINATION VITAL SIGNS: Weight 84.5 kg. BP 129/72, P 64, R 16, temp 96.8, O2 sat 92%. GENERAL: Patient is a well-developed, well-nourished female in no acute distress. HEAD: Atraumatic, normocephalic. EYES: Sclerae anicteric. MOUTH: Moist mucous membranes. NECK: Supple. No adenopathy. LUNGS: Clear bilaterally. CARDIOVASCULAR: Heart rate regular, 64 per minute, without murmur, S3, or S4. EXTREMITIES: No edema. No significant joint issues noted. SKIN: No rash. LABORATORY CBC on 08/29/18 showed a WBC of 4.3, hemoglobin 13.3, hematocrit 39.4, platelets 196,000. Serum iron 87, ferritin 35, iron saturation 24.9%. IMPRESSION AND PLAN The patient is a 68-year-old female with hereditary hemochromatosis with homozygous state H63D mutation of the HFE gene. She is also diagnosed with rheumatoid arthritis. 1. Hereditary hemochromatosis. Patient has been receiving intermittent phlebotomy, last 08/11/18. The goal is to maintain her ferritin less than or equal to 100 and/or her iron saturation less than or equal to 60%. Today, she presents with a ferritin of 35 and an iron saturation of 24.9%, so no phlebotomy will be done. She will be seen again next week for lab, and further decisions on phlebotomy will be made at that time. 2. Rheumatoid arthritis. Continue Remicade every eight weeks under the direction of Dr. Haq. She has noted significant improvement in her overall symptoms on this medication . 3. Follow up with Dr. Bethea in one month for continued care, earlier if there is a problem. NAREN
[~2018-09-11 10:00] MED LIST changes: +ACETAMINOPHEN 325 MG TAB PO PRN; +DEXTROSE 5%(*) 100 ML BAG 100 ML IVPB PRN; +INFLUENZA VIRUS VAC 0.5ML SYR IM ONLY ONE; +LORATADINE 10 MG TAB PO PRN; +inFLIXimab 100 MG VIAL 300 MG in NS(*) 0.9% 250 ML BAG 250 ML IVPB ONE
[2018-09-11 10:48] VITALS: BP 108/76
== END 2018-09-13 ==
LOC: SPU 10:00
PROVIDERS: ATTEND Internal Medicine Hematology
DX: E83.110 Hereditary hemochromatosis (principal); M06.9 Rheumatoid arthritis, unspecified; Z86.711 Personal history of pulmonary embolism; Z96.651 Presence of right artificial knee joint; Z79.899 Other long term (current) drug therapy; Z23 Encounter for immunization
CPT/HCPCS: 36415; 82565; 82728; 83540; 83550; 84450; 85025; 85027; 85651; 90471; 96413; 96415; 99195; A9270; G0463; J1745; J7050; Q2037; 82040; 82247; 82310; 82374; 82435; 82947; 84075; 84132; 84155; 84295; 84460; 84520; 90674; 99202; 99212

== ENCOUNTER 2018-10-06 11:31 | Outpatient (RCR) | payer MEDICARE ==
[2016-05-07 15:21] VITALS: Wt 85.9 kg
[2018-09-26 08:29] VITALS: BP 131/73
[~2018-10-06 11:31] MED LIST changes: -ACETAMINOPHEN 325 MG TAB PO PRN; +ALTEPLASE RECOMB 2 MG VIAL IVP PRN; +HEPARIN FLSH (PORT) 500 UN/5ML IVP PRN; -INFLUENZA VIRUS VAC 0.5ML SYR IM ONLY ONE; +LIDOCAINE/SOD BICARB 8.4% SYR ID PRN; -LORATADINE 10 MG TAB PO PRN; +NS(*) 0.9% 100 ML BAG 100 ML IVPB PRN; +NS(*) 0.9% 500 ML BAG 500 ML IV PRN; +WATER FOR INJ,STERILE 20 ML IVP PRN; -inFLIXimab 100 MG VIAL 300 MG in NS(*) 0.9% 250 ML BAG 250 ML IVPB ONE
[2018-10-06 12:00] VITALS: BP 137/80
--- NOTE | 2018-10-07 17:01 | [facility] ONCOLOGY NOTE ---
EVENT DATE: October 06, 2018 DIAGNOSES 1. Hereditary hemochromatosis with homozygous state of H63D mutation of the HFE gene. 2. Rheumatoid arthritis. CHIEF COMPLAINT Patient is here today for followup of her hereditary hemochromatosis. HEMATOLOGY HISTORY Patient is a 68-year-old female who was diagnosed with iron overload for a long time. As per patient, she was followed by Dr. Rae in the past. She was advised to do a phlebotomy every six weeks by donating her blood, and the patient ended doing that in 2014. Patient has been followed by Dr. 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 HISTORY OF PRESENT ILLNESS Patient is here today for followup of her hereditary hemochromatosis. She has some occasional epistaxis due to dryness. She has also stiff joints occasionally. She bruises easily. PAST MEDICAL HISTORY 1. Hereditary hemochromatosis. 2. History of pulmonary embolism after right knee replacement surgery in 2013. 3. Rheumatoid arthritis. PAST SURGICAL HISTORY 1. Hysterectomy and oophorectomy. 2. Hernia repair. 3. Right knee replacement 2013. 4. Tonsillectomy. FAMILY HISTORY Brother with lung cancer. Sister with hepatitis C virus infection. SOCIAL HISTORY Patient is with two children. She is a homemaker. Denies any abuse of tobacco, alcohol, or drugs. CURRENT MEDICATIONS 1. Vitamin D 5000 units daily. 2. Remicade 100 mg intravenously every eight weeks. 3. Folic acid 1 mg daily. 4. Methotrexate 2.5 mg every week. ALLERGIES She had an allergic reaction to something given by her dentist. She does not know exactly the name. REVIEW OF SYSTEMS CONSTITUTIONAL: No appetite or weight change. No fever, chills or sweating. No recent infection. HEENT: Ears: No tinnitus or hearing problem. Nose: She has occasional epistaxis. Throat: No sore throat or mouth ulcers. Eyes: No diplopia or visual changes. RESPIRATORY: No shortness of breath. No cough, expectoration, or hemoptysis. CARDIOVASCULAR: No chest pain, orthopnea, or paroxysmal nocturnal dyspnea (PND). No edema. No palpitations. GASTROINTESTINAL: No nausea or vomiting. No diarrhea or constipation. No change in bowel movements. No heartburn or swallowing difficulties. No abdominal pain. No jaundice. No hematemesis, melena, or rectal bleeding. GENITOURINARY: No hematuria or dysuria. MUSCULOSKELETAL: She has stiff joints occasionally. NEUROLOGICAL: No tingling or numbness in the hands or feet. No headaches or convulsions. HEMATOLOGIC/LYMPHATIC: She bruises easily. No weakness or fatigue. No enlarged lymph nodes. SKIN: No skin rash or lumps. PSYCHIATRIC: No anxiety or depression. PHYSICAL EXAMINATION GENERAL: Looks stable. Well developed, well nourished, and in no acute distress. VITAL SIGNS: Blood pressure 167/80, pulse 73 per minute, respirations 16 per minute, temperature 97.8, pulse ox 94 % on room air. HEENT: Head: Atraumatic. No sinus tenderness to palpation. Eyes: No icterus or conjunctivitis. Mouth and throat: No oral thrush or mucositis. NECK: Supple. No cervical or supraclavicular lymphadenopathy. LUNGS: Clear to auscultation and percussion bilaterally. HEART: Regular rate and rhythm. No gallops, murmurs, clicks, or rubs. ABDOMEN: Soft and lax. No tenderness. No hepatosplenomegaly. No masses. EXTREMITIES: No cyanosis, clubbing, or edema. LYMPHATICS: No peripheral lymphadenopathy. NEUROLOGICAL: Conscious, alert, and oriented times three. No focal motor or sensory deficits. PSYCHIATRIC: Mood and affect appear normal. SKIN: No skin rash, bruise, or purpuric eruption. DIAGNOSTIC DATA CBC showed white count 5000, hemoglobin 15.1, hematocrit 45.1, platelets 175,000. ANC 1.7. Serum iron 101, TIBC 367, iron saturation 27.5%, and ferritin 24. ASSESSMENT 1. Hereditary hemochromatosis with homozygous state of H63D mutation of the HFE gene tested April 2018. Patient was donating her blood every six weeks in the past. She stopped donation of blood since 2014. She started checking her blood count every two weeks with phlebotomy if iron saturation more than 60% and/or serum ferritin more than 100. She did not have any phlebotomy for the last 1- 1/2 months. Her current ferritin is 24 and iron saturation 27.5%. I am planning to see the patient in three months from now with CBC, chemistry panel, iron studies with ferritin, and I will consider phlebotomy if iron saturation is more than 60% and/or serum ferritin more than 100. 2. Rheumatoid arthritis, on methotrexate and Remicade. PLAN 1. Continue followup. 2. Patient to return in three months with CBC, chem panel, and iron studies with ferritin. 3. Consider phlebotomy if serum ferritin above 100 and/or iron saturation above 60%. 4. Patient to contact us for any new concern or complaints. NAREN
[2018-11-15] MEDS ORDERED: EZET10TA41 PO (13:50)
[2018-11-15] MEDS ORDERED: VARI50KI IM (13:54)
== END 2018-12-24 ==
LOC: SPU 11:31
PROVIDERS: ATTEND Internal Medicine Hematology
DX: E83.110 Hereditary hemochromatosis (principal); M06.9 Rheumatoid arthritis, unspecified; Z86.711 Personal history of pulmonary embolism
CPT/HCPCS: 36415; 82728; 83540; 83550; 85027; G0463; 99212

== ENCOUNTER 2018-10-17 08:00 | Outpatient (RCR) | payer MEDICARE ==
[2016-05-07 15:21] VITALS: BMI 37.4
[~2018-10-17 08:00] MED LIST changes: -HEPARIN FLSH (PORT) 500 UN/5ML IVP PRN; -LIDOCAINE/SOD BICARB 8.4% SYR ID PRN; -NS(*) 0.9% 100 ML BAG 100 ML IVPB PRN
[2018-10-17 08:19] VITALS: BP 130/84
[2018-10-17] MEDS: NS(*) 0.9% 100 ML BAG 100 ML IVPB PRN (08:25)
[2018-10-17] MEDS ORDERED: LORATADINE 10 MG TAB PO PRN (08:35)
[2018-10-17] MEDS ORDERED: ACETAMINOPHEN 325 MG TAB PO PRN (08:35)
[2018-10-17] MEDS ORDERED: inFLIXimab 100 MG VIAL 300 MG in NS(*) 0.9% 250 ML BAG 250 ML IVPB ONE (09:00)
[2018-10-17] MEDS: LIDOCAINE/SOD BICARB 8.4% SYR ID PRN (09:06)
[2018-10-17 12:56] VITALS: BP 115/73
[2018-11-15] MEDS ORDERED: EZET10TA41 PO (13:50)
[2018-11-15] MEDS ORDERED: VARI50KI IM (13:54)
[2018-12-12 08:14] VITALS: BP 113/68
[2018-12-12] MEDS: LIDOCAINE/SOD BICARB 8.4% SYR ID PRN (08:43)
[2018-12-12] MEDS: NS(*) 0.9% 100 ML BAG 100 ML IVPB PRN (08:43)
[2018-12-12 08:49] LABS: PLATELET COUNT, AUTOMATED 176 K/uL (150-450)
[2018-12-12] MEDS ORDERED: inFLIXimab 100 MG VIAL 300 MG in NS(*) 0.9% 250 ML BAG 250 ML IVPB ONE (09:30)
[2018-12-12 12:52] VITALS: BP 115/65
== END 2019-01-14 ==
LOC: SPU 08:00
PROVIDERS: ATTEND Internal Medicine Rheumatology
DX: M05.79 Rheumatoid arthritis with rheumatoid factor of multiple sites without organ or systems involvement (principal)
CPT/HCPCS: 82565; 84450; 85025; 85651; 86480; 96413; 96415; A9270; J1745; J7050

== ENCOUNTER → 2019-01-02 | Outpatient (CLI) | payer MEDICARE ==
[2016-05-07 15:21] VITALS: BMI 37.4
[~2019-01-02] MED LIST changes: -ALTEPLASE RECOMB 2 MG VIAL IVP PRN; -DEXTROSE 5%(*) 100 ML BAG 100 ML IVPB PRN; +EZET10TA41 PO; -NS(*) 0.9% 500 ML BAG 500 ML IV PRN; -WATER FOR INJ,STERILE 20 ML IVP PRN
--- NOTE | 2019-01-03 13:38 | RADIOLOGY IMAGING REPORT ---
FACILITY: [facility] PATIENT NAME: DAYNA SOL : [id number] MR: [id number] V: [id number] EXAM DATE: ORDERING PHYSICIAN: MARICHUY LUNDBERG TECHNOLOGIST: Kasia Camacho PROCEDURE:BILATERAL DIGITAL SCREENING MAMMOGRAM WITH CAD ASSISTED INTERPRETATION & 3D TOMOSYNTHESIS COMPARISON:Prior mammograms 12/27/17, 12/14/16. INDICATIONS:SCREENING FINDINGS: There are scattered areas of fibroglandular density throughout the breasts. The parenchymal pattern has remained stable allowing for difference in mammographic technique & patient positioning. DIAGNOSTIC CATEGORY 1--NEGATIVE. RECOMMENDATIONS: ROUTINE MAMMOGRAM AND CLINICAL EVALUATION. IMPRESSION: BIRADS 1: Negative. No significant abnormality is seen. Dictated by: Claire Zayas M.D. on 01/02/2019 at 16:31 Transcribed by: OWEN on 01/03/2019 at 7:53 Approved by: Claire Zayas M.D. on 01/03/2019 at 13:37 [facility]
== END ==
LOC: MAMO 02:23
PROVIDERS: ATTEND Nurse Practitioner Primary Care
DX: Z12.31 Encounter for screening mammogram for malignant neoplasm of breast (principal)
CPT/HCPCS: 77063; 77067

== ENCOUNTER → 2019-02-22 | Outpatient (CLI) | payer MEDICARE ==
[2016-05-07 15:21] VITALS: BMI 37.4
[~2019-02-22] MED LIST changes: +DIPH0.5S2 IM; +PNEI IM
== END ==
LOC: LAB 08:46
PROVIDERS: ATTEND Emergency Medicine
DX: E78.5 Hyperlipidemia, unspecified (principal); R73.03 Prediabetes; E55.9 Vitamin D deficiency, unspecified; R41.3 Other amnesia
CPT/HCPCS: 36415; 82306; 82465; 82607; 83036; 83718; 84443; 84478

== ENCOUNTER 2019-03-27 08:00 | Outpatient (RCR) | payer MEDICARE ==
[2016-05-07 15:21] VITALS: Wt 88.3 kg
[2019-01-02 09:36] LABS: PLATELET COUNT, AUTOMATED 195 K/uL (150-450)
[2019-01-02 09:40] VITALS: BP 130/67
[2019-01-05 08:11] VITALS: BP 110/57
--- NOTE | 2019-01-05 09:10 | [facility] ONCOLOGY NOTE ---
EVENT DATE: January 05, 2019 DIAGNOSES 1. Hereditary hemochromatosis with homozygous state of H63D mutation of the HFE gene. 2. Rheumatoid arthritis. CHIEF COMPLAINT Patient is here today for followup of her hereditary hemochromatosis. HEMATOLOGY HISTORY Patient is a 68-year-old female who was diagnosed with iron overload for a long time. As per patient, she was followed by Dr. Rae in the past. She was advised to do a phlebotomy every six weeks by donating her blood, and the patient ended doing that in 2014. Patient has been followed by Dr. 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 HISTORY OF PRESENT ILLNESS Patient is here today for followup of her hereditary hemochromatosis. She is doing really very well currently except for some pain in the left groin area. She has some fatigue after her phlebotomy but after that she feels much better. As per patient, she had a a phlebotomy nearly every six weeks. PAST MEDICAL HISTORY 1. Hereditary hemochromatosis. 2. History of pulmonary embolism after right knee replacement surgery in 2013. 3. Rheumatoid arthritis. PAST SURGICAL HISTORY 1. Hysterectomy and oophorectomy. 2. Hernia repair. 3. Right knee replacement 2013. 4. Tonsillectomy. FAMILY HISTORY Brother with lung cancer. Sister with hepatitis C virus infection. SOCIAL HISTORY Patient is with two children. She is a homemaker. Denies any abuse of tobacco, alcohol, or drugs. CURRENT MEDICATIONS 1. Vitamin D 5000 units daily. 2. Remicade 100 mg intravenously every eight weeks. 3. Folic acid 1 mg daily. 4. Methotrexate 2.5 mg every week. ALLERGIES She had an allergic reaction to something given by her dentist. She does not know exactly the name. REVIEW OF SYSTEMS CONSTITUTIONAL: No appetite or weight change. No fever, chills or sweating. No recent infection. HEENT: Ears: No tinnitus or hearing problem. Nose: She has occasional epistaxis. Throat: No sore throat or mouth ulcers. Eyes: No diplopia or visual changes. RESPIRATORY: No shortness of breath. No cough, expectoration, or hemoptysis. CARDIOVASCULAR: No chest pain, orthopnea, or paroxysmal nocturnal dyspnea (PND). No edema. No palpitations. GASTROINTESTINAL: No nausea or vomiting. No diarrhea or constipation. No change in bowel movements. No heartburn or swallowing difficulties. No abdominal pain. No jaundice. No hematemesis, melena, or rectal bleeding. GENITOURINARY: No hematuria or dysuria. MUSCULOSKELETAL: Patient has some left groin pain. NEUROLOGICAL: No tingling or numbness in the hands or feet. No headaches or convulsions. HEMATOLOGIC/LYMPHATIC: She bruises easily. No weakness or fatigue. No enlarged lymph nodes. SKIN: No skin rash or lumps. PSYCHIATRIC: No anxiety or depression. PHYSICAL EXAMINATION GENERAL: Looks stable. Well developed, well nourished, and in no acute distress. VITAL SIGNS: Blood pressure 110/57, pulse 53 per minute, respirations 16 per minute, temperature 96.8, pulse ox 93% on room air. HEENT: Head: Atraumatic. No sinus tenderness to palpation. Eyes: No icterus or conjunctivitis. Mouth and throat: No oral thrush or mucositis. NECK: Supple. No cervical or supraclavicular lymphadenopathy. LUNGS: Clear to auscultation and percussion bilaterally. HEART: Regular rate and rhythm. No gallops, murmurs, clicks, or rubs. ABDOMEN: Soft and lax. No tenderness. No hepatosplenomegaly. No masses. EXTREMITIES: No cyanosis, clubbing, or edema. LYMPHATICS: No peripheral lymphadenopathy. NEUROLOGICAL: Conscious, alert, and oriented times three. No focal motor or sensory deficits. PSYCHIATRIC: Mood and affect appear normal. SKIN: No skin rash, bruise, or purpuric eruption. DIAGNOSTIC DATA CBC showed white count 5.3, hemoglobin 15.5, hematocrit 45.8, platelets 195,000. Chem panel totally normal except AST 44, blood sugar 128, total bilirubin 1.7. Iron studies shows serum iron 257, TIBC 329, iron saturation 78.1% and ferritin 57. ASSESSMENT 1. Hereditary hemochromatosis with homozygous state of H63D mutation of the HFE gene, tested April 2018. Patient was donating her blood every six weeks in the past. She stopped donation of blood since 2014. She started checking her blood count every two weeks with phlebotomy if iron saturation was more than 60% and/or serum ferritin more than 100. As per patient, she may need phlebotomy every six weeks. Her current ferritin is 57 and iron saturation 78.1% and patient had phlebotomy done a few days ago. I am planning to see her again in three months with CBC, chem panel, iron studies with ferritin and I will repeat the CBC and iron studies every six weeks and I will phlebotomize 500 mL if ferritin above 50 and/or iron saturation above 60%. 2. Rheumatoid arthritis, on methotrexate and Remicade. PLAN 1. Continue followup. 2. Patient to return in three months with CBC, chem panel and iron studies with ferritin. 3. Check CBC, iron studies with ferritin every six weeks. 4. Phlebotomize 500 mL blood if ferritin above 50 and/or iron saturation above 60%. 5. Patient to contact us for any new concern or complaints. MTDD
[2019-02-13 08:22] VITALS: BP 146/70
[2019-02-13 08:29] LABS: PLATELET COUNT, AUTOMATED 188 K/uL (150-450)
[~2019-03-27 08:00] MED LIST changes: +CYAN500T39 PO; +DEXTROSE 5%(*) 100 ML BAG 100 ML IVPB PRN; +LIDOCAINE/SOD BICARB 8.4% SYR ID PRN; +NS(*) 0.9% 100 ML BAG 100 ML IVPB PRN
[2019-03-27 08:27] VITALS: BP 110/84
[2019-03-27 08:31] LABS: PLATELET COUNT, AUTOMATED 165 K/uL (150-450)
== END 2019-04-02 ==
LOC: SPU 08:00
PROVIDERS: ATTEND Internal Medicine Hematology
DX: E83.110 Hereditary hemochromatosis (principal); M06.9 Rheumatoid arthritis, unspecified; Z79.899 Other long term (current) drug therapy
CPT/HCPCS: 36415; 82728; 83540; 83550; 85025; 99195; G0463; 82040; 82247; 82310; 82374; 82435; 82565; 82947; 84075; 84132; 84155; 84295; 84450; 84460; 84520; 99212

== ENCOUNTER 2019-04-03 08:00 | Outpatient (RCR) | payer MEDICARE ==
[2016-05-07 15:21] VITALS: Wt 86.6 kg
[2019-02-06 08:17] VITALS: BP 118/72
[2019-02-06 08:43] LABS: PLATELET COUNT, AUTOMATED 198 K/uL (150-450)
[2019-02-06] MEDS: NS(*) 0.9% 100 ML BAG 100 ML IVPB PRN (08:44)
[2019-02-06] MEDS: LIDOCAINE/SOD BICARB 8.4% SYR ID PRN (08:44)
[2019-02-06] MEDS: LORATADINE 10 MG TAB PO PRN (08:44)
[2019-02-06] MEDS: ACETAMINOPHEN 325 MG TAB PO PRN (08:44)
[2019-02-06 12:37] VITALS: BP 106/63
[~2019-04-03 08:00] MED LIST changes: -LIDOCAINE/SOD BICARB 8.4% SYR ID PRN; -NS(*) 0.9% 100 ML BAG 100 ML IVPB PRN; +inFLIXimab 100 MG VIAL 300 MG in NS(*) 0.9% 250 ML BAG 250 ML IVPB ONE
[2019-04-03 08:08] VITALS: BP 123/73
[2019-04-03] MEDS: LIDOCAINE/SOD BICARB 8.4% SYR ID PRN (08:19)
[2019-04-03] MEDS: LORATADINE 10 MG TAB PO PRN (08:20)
[2019-04-03] MEDS: NS(*) 0.9% 100 ML BAG 100 ML IVPB PRN (08:20)
[2019-04-03] MEDS: ACETAMINOPHEN 325 MG TAB PO PRN (08:20)
[2019-04-03 08:26] LABS: PLATELET COUNT, AUTOMATED 184 K/uL (150-450)
[2019-04-03] MEDS ORDERED: inFLIXimab 100 MG VIAL 300 MG in NS(*) 0.9% 250 ML BAG 250 ML IVPB ONE (08:30)
[2019-04-03 11:49] VITALS: BP 120/69
== END 2019-05-06 ==
LOC: SPU 08:00
PROVIDERS: ATTEND Internal Medicine Rheumatology
DX: M05.79 Rheumatoid arthritis with rheumatoid factor of multiple sites without organ or systems involvement (principal)
CPT/HCPCS: 82565; 84450; 85025; 85651; 96413; 96415; A9270; J1745; J7050

== ENCOUNTER → 2019-05-08 | Outpatient (CLI) | payer MEDICARE ==
[2016-05-07 15:21] VITALS: BMI 37.4
[~2019-05-08] MED LIST changes: +AMOX-556 PO; -DEXTROSE 5%(*) 100 ML BAG 100 ML IVPB PRN; -inFLIXimab 100 MG VIAL 300 MG in NS(*) 0.9% 250 ML BAG 250 ML IVPB ONE
== END ==
LOC: SPU 08:16
PROVIDERS: ATTEND Internal Medicine Rheumatology
DX: R94.5 Abnormal results of liver function studies (principal)
CPT/HCPCS: 82040; 82247; 82248; 84075; 84155; 84450; 84460